=== PATIENT | male | born 1945 | race Caucasian/White ===

== ENCOUNTER → 2024-06-11 12:39 | Outpatient (REF) | payer MEDICARE, BC, SELFPAY | LOC: RCS 12:39 | PROVIDERS: ATTENDING PHYSICIAN Internal Medicine Cardiovascular Disease; FAMILY PHYSICIAN Family Medicine | DX: I77.810 Thoracic aortic ectasia (principal) | CPT/HCPCS: 93306 ==

== ENCOUNTER 2024-08-06 06:38 | Day surgery (SDC) | payer MEDICARE, BC, SELFPAY | END 2024-08-06 10:33 | disposition home or self-care (01) | LOC: GI 06:38 | PROVIDERS: ATTENDING PHYSICIAN Student in an Organized Health Care Education/Training Program | DX: Z12.11 Encounter for screening for malignant neoplasm of colon (principal); D12.2 Benign neoplasm of ascending colon; D12.3 Benign neoplasm of transverse colon; K63.5 Polyp of colon; K57.30 Diverticulosis of large intestine without perforation or abscess without bleeding; K63.89 Other specified diseases of intestine; K62.89 Other specified diseases of anus and rectum; K64.0 First degree hemorrhoids; Z86.0101 Personal history of adenomatous and serrated colon polyps; Z79.01 Long term (current) use of anticoagulants | CPT/HCPCS: 45385; 45380; 88305 ==